=== PATIENT | female | born 1960 ===

== ENCOUNTER 2017-06-24 06:05 | Observation (INO) | payer MEDICARE, MEDICAID ==
[2017-06-24 06:20] VITALS: BMI 31.6
--- NOTE | 2017-06-24 06:52 | ED PDOC ---
Upper Extremity Pain/Injury Time Seen by Provider: 06/24/17 06:45 Chief Complaint (Nursing): Finger,Hand,&Wrist Chief Complaint (Provider): Hand Pain History Per: Patient History/Exam Limitations: no limitations Onset/Duration Of Symptoms: Persistent Current Symptoms Are (Timing): Still Present Additional Complaint(s): 57 year old right-hand dominant female presents to ED with complaints of left hand pain and has a past medical history of asthma. Notes intractable pain status post injury to the hand after falling a "long time ago". Notes pain has worsened with time. PCP: Alondra Past Medical History Reviewed: Historical Data, Nursing Documentation, Vital Signs Vital Signs: Last Vital Signs Temp 97.8 F 06/24/17 06:20 Pulse 74 06/24/17 06:20 Resp 18 06/24/17 06:20 BP 142/88 06/24/17 06:20 Pulse Ox 100 06/24/17 06:20 - Medical History PMH: Arthritis, Asthma, Fractures - Surgical History Surgical History: Tonsillectomy, Other surgeries: Lap band surgery, 2 right knee replacements, 1 left knee replacement - Family History Family History: States: Unknown Family Hx - Living Arrangements Living Arrangements: With Family - Social History Current smoker - smoking cessation education provided: No Ex-Smoker (has not smoked in the last 12 months): No - Home Medications Home Medications: Ambulatory Orders Medication Instructions Recorded Albuterol HFA [Ventolin HFA 90 2 puff INH PRN 06/24/17 mcg/actuation (8 g)] Ibuprofen [Motrin Tab] 1 tab PO Q6 PRN 06/24/17 Meloxicam [Mobic] 1 tab PO DAILY 06/24/17 Montelukast Sodium [Singulair] 1 tab PO BID 06/24/17 tiZANidine [Zanaflex] 1 tab PO BID 06/24/17 - Allergies Allergies/Adverse Reactions: Allergies Allergy/AdvReac Type Severity Reaction Status Date / Time No Known Allergies Allergy Verified 06/24/17 06:20 Review of Systems ROS Statement: Except As Marked, All Systems Reviewed And Found Negative Musculoskeletal: Positive for: Hand Pain (left hand pain) Physical Exam - Reviewed Nursing Documentation Reviewed: Yes Vital Signs Reviewed: Yes - Physical Exam Appears: Positive for: Non-toxic, No Acute Distress Skin: Positive for: Normal Color, Warm, Dry Cardiovascular/Chest: Negative for: Tachycardia Respiratory: Negative for: Respiratory Distress Extremity: Positive for: Tenderness (left hand tenderness). Negative for: Normal ROM (loss of ROM to left hand), Deformity Neurologic/Psych: Positive for: Alert, Oriented. Negative for: Motor/Sensory Deficits - Laboratory Results Result Diagrams: 06/24/17 07:00 06/24/17 07:00 - ECG ECG: Positive for: Interpreted By Me ECG Rhythm: Positive for: Sinus Rhythm, Nonspecific Changes Interpretation Of ECG: likely sinus rhythm w artifact at 67bpm O2 Sat by Pulse Oximetry: 100 (RA) Pulse Ox Interpretation: Normal Medical Decision Making Medical Decision Makin Initial plan: * EKG * Labs * PTT/PT * CXR admit hospitalist obs for med clearance and ortho/hand eval given degree of discomfort and inability to effectively use hand Scribe Attestation: Documented by Nupur Rizo acting as a scribe for Pelon Lovelace DO. Scribe Attestation: All medical record entries made by the Scribe were at my direction and personally dictated by me. I have reviewed the chart and agree that the record accurately reflects my personal performance of the history, physical exam, medical decision making, and the department course for this patient. I have also personally directed, reviewed, and agree with the discharge instructions and disposition. Disposition - Clinical Impression Clinical Impression: Hand injury - Patient ED Disposition Is Patient to be Admitted: Yes - Disposition Disposition Time: 06:58 Condition: STABLE Forms: [facility] ([place]) - Pt Status Changed To: Hospital Disposition Of: Observation - POA Present On Arrival: None
[2017-06-24 07:08] LABS: BASO % 0.3 % (0.0-2.0); EOS # 0.3 K/uL (0.0-0.7); EOS % 4.6 % (0.0-4.0); LYMPH # 2.4 K/uL (1.0-4.3); MEAN CELL VOLUME 90.7 fl (81.0-99.0); MEAN CORPUSCULAR HEMOGLOBIN 29.8 pg (27.0-31.0); MEAN CORPUSCULAR HGB CONC 32.9 g/dL (33.0-37.0); MEAN PLATELET VOLUME 9.8 fl (7.2-11.7); MONO # 0.5 K/uL (0.0-0.8); MONO % 7.3 % (0.0-10.0); NEUT # 3.6 K/uL (1.8-7.0); NEUT % 52.8 % (50.0-75.0); NRBC % 0.1 % (0.0-0.0); RBC 4.36 Mil/uL (3.80-5.20); RED CELL DISTRIBUTION WIDTH 13.2 % (11.5-14.5); WHITE BLOOD COUNT 6.7 K/uL (4.8-10.8)
[2017-06-24 07:21] LABS: INR 1.1 (0.9-1.2); PROTHROMBIN TIME 11.8 Seconds (9.8-13.1)
[2017-06-24 07:22] LABS: PARTIAL THROMBOPLASTIN TIME 31.8 Seconds (25.6-37.1)
[2017-06-24 07:24] LABS: ALB/GLOB RATIO 1.3 (1.0-2.1); ALBUMIN 4.5 g/dL (3.5-5.0); ALT/SGPT 34 U/L (9-52); AST/SGOT 27 U/L (14-36); BLOOD UREA NITROGEN 13 mg/dl (7-17); CALCIUM 9.7 mg/dL (8.4-10.2); GFR AFRICAN-AMERICAN > 60; GFR NON-AFRICAN AMERICAN > 60
--- NOTE | 2017-06-24 08:24 | CP.PCM.HP ---
<Davie Guerrero - Last Filed: 06/24/17 09:42> History of Present Illness - History of Present Illness History of Present Illness: 57 y/o F with a PMHx of bilateral Knee surgical repair presented to ER complaining of persistent L hand pain that began 3 years ago after falling and landing on her outstretch L hand. Pain has become severe since several weeks ago , constant, start at the level of wrist and radiates to fingers, aggravated by L hand movement and associated with paresthesia on lateral aspect of L hand involving first digit predominantly. Pt explains that around the time she fell 3 years ago, she was having bilateral diffuse arthralgias due to Chikungunya viral infection and L hand pain alleviated as viral infection subsidized. Pain was intermittent and did not seem to bother her much. Pt reports multiple falls due to bilateral knee weakness as result of surgical repairs, pt tends to land on outstretch hand. PMD: Dr Thaddeus Cantu in [place], [place]. Allergies: Penicillin, aspirin, carrots and celery. Medications: Mobic, Ibuprofen, Montelukast, Atrovent, Symbicort, Albuterol. PMHx: mild intermittent asthma PSHx: 6x, R Knee surgical repair on 2005 and 2017, L Knee surgical repair on 2016. Unspecified bariatric surgery. FHx: NC SHx: No smoking, ocasional EtOH, no rec drugs. At ER: - CBC, CMP and coagulation profile were unremarkable. - EKG and CXR were unremarkable. Present on Admission - Present on Admission Any Indicators Present on Admission: No Review of Systems - EENT Eyes: absent: Blurred Vision, Change in Vision Ears: absent: Ear Pain Nose/Mouth/Throat: absent: Nasal Congestion - Cardiovascular Cardiovascular: absent: Chest Pain, Chest Pain at Rest, Dyspnea - Respiratory Respiratory: absent: Cough, Dyspnea, Hemoptysis - Gastrointestinal Gastrointestinal: absent: Abdominal Pain, Bloating, Change in Bowel Habits - Genitourinary Genitourinary: absent: Difficulty Urinating Past Patient History - Past Medical History & Family History Past Medical History?: Yes - Past Social History Smoking Status: Never Smoked Alcohol: Occasional - PULMONARY Hx Asthma: Yes - MUSCULOSKELETAL/RHEUMATOLOGICAL Hx Arthritis: Yes Hx Fractures: Yes - PSYCHIATRIC Hx Substance Use: No - SURGICAL HISTORY Hx Tonsillectomy: Yes Meds Allergies/Adverse Reactions: Allergies Allergy/AdvReac Type Severity Reaction Status Date / Time aspirin Allergy RASH Verified 06/24/17 09:14 carrot Allergy RASH Verified 06/24/17 09:14 celery Allergy RASH Verified 06/24/17 09:14 Penicillins Allergy RASH Verified 06/24/17 09:14 Physical Exam - Constitutional Appears: Well, No Acute Distress - Head Exam Head Exam: ATRAUMATIC, NORMAL INSPECTION - Eye Exam Eye Exam: EOMI, Normal appearance, PERRL - ENT Exam ENT Exam: Mucous Membranes Moist - Neck Exam Neck exam: Positive for: Full Rom, Normal Inspection. Negative for: Meningismus - Respiratory Exam Respiratory Exam: Clear to Auscultation Bilateral, NORMAL BREATHING PATTERN - Cardiovascular Exam Cardiovascular Exam: REGULAR RHYTHM, +S1, +S2 - GI/Abdominal Exam GI & Abdominal Exam: Normal Bowel Sounds, Soft. absent: Rigid, Tenderness - Extremities Exam Additional comments: - L upper extremity: presence of swelling at the level wrist, decreased sensation on lateral aspect of L hand, decreased ROM on L first digit, inability to make a complete fist. Tenderness over lateral L hand. Strength 4/5 L hand. - R upper extremity unremarkable. - Presence of surgical scar on bilateral knees. Results - Vital Signs Recent Vital Signs: Last Vital Signs Temp 97.8 F 06/24/17 06:20 Pulse 74 06/24/17 06:20 Resp 18 06/24/17 06:20 BP 142/88 06/24/17 06:20 Pulse Ox 100 06/24/17 07:51 - Labs Result Diagrams: 06/24/17 07:00 06/24/17 07:00 Labs: Laboratory Results - last 24 hr 06/24/17 06/24/17 06/24/17 07:00 07:00 07:00 WBC 6.7 RBC 4.36 Hgb 13.0 Hct 39.5 MCV 90.7 MCH 29.8 MCHC 32.9 L RDW 13.2 Plt Count 190 MPV 9.8 Neut % (Auto) 52.8 Lymph % (Auto) 35.0 Fisher % (Auto) 7.3 Eos % (Auto) 4.6 H Baso % (Auto) 0.3 Neut # (Auto) 3.6 Lymph # (Auto) 2.4 Fisher # (Auto) 0.5 Eos # (Auto) 0.3 Baso # (Auto) 0.0 PT 11.8 INR 1.1 APTT 31.8 Sodium 143 Potassium 4.0 Chloride 102 Carbon Dioxide 30 Anion Gap 15 BUN 13 Creatinine 0.6 L Est GFR ( Amer) > 60 Est GFR (Non-Af Amer) > 60 Random Glucose 97 Calcium 9.7 Total Bilirubin 0.8 AST 27 ALT 34 Alkaline Phosphatase 79 Total Protein 8.1 Albumin 4.5 Globulin 3.6 Albumin/Globulin Ratio 1.3 Assessment & Plan - Assessment and Plan (Free Text) Assessment: 57 y/o F presented with persistent L hand pain. Plan: 1. Left hand pain - Consult to Orthopedics. - Meloxicam and Tizanidine for pain management. 2. Asthma, mild intermittent - C/w home medications: Albuterol and Montelukast. 3. DVT prophylaxis - SCDs for now. - Date & Time Date: 06/24/17 Time: 08:00 <Melody Tan - Last Filed: 06/24/17 09:48> Results - Vital Signs Recent Vital Signs: Last Vital Signs Temp 97.8 F 06/24/17 06:20 Pulse 74 06/24/17 06:20 Resp 18 06/24/17 06:20 BP 142/88 06/24/17 06:20 Pulse Ox 100 06/24/17 07:51 - Labs Result Diagrams: 06/24/17 07:00 06/24/17 07:00 Labs: Laboratory Results - last 24 hr 06/24/17 06/24/17 06/24/17 07:00 07:00 07:00 WBC 6.7 RBC 4.36 Hgb 13.0 Hct 39.5 MCV 90.7 MCH 29.8 MCHC 32.9 L RDW 13.2 Plt Count 190 MPV 9.8 Neut % (Auto) 52.8 Lymph % (Auto) 35.0 Fisher % (Auto) 7.3 Eos % (Auto) 4.6 H Baso % (Auto) 0.3 Neut # (Auto) 3.6 Lymph # (Auto) 2.4 Fisher # (Auto) 0.5 Eos # (Auto) 0.3 Baso # (Auto) 0.0 PT 11.8 INR 1.1 APTT 31.8 Sodium 143 Potassium 4.0 Chloride 102 Carbon Dioxide 30 Anion Gap 15 BUN 13 Creatinine 0.6 L Est GFR ( Amer) > 60 Est GFR (Non-Af Amer) > 60 Random Glucose 97 Calcium 9.7 Total Bilirubin 0.8 AST 27 ALT 34 Alkaline Phosphatase 79 Total Protein 8.1 Albumin 4.5 Globulin 3.6 Albumin/Globulin Ratio 1.3 Attending/Attestation - Attestation I have personally seen and examined this patient.: Yes I have fully participated in the care of the patient.: Yes I have reviewed all pertinent clinical information: Yes Notes (Text): Left Hand Pain , Hx of Fracture -Ortho/Hand Specialist consulted- Dr Matos - plan for surgery today - Keep Pt NPO - rpt EKG ( EKG done earlier multiple artifacts - looks normal, SR) -low cardiac risk for surgery _pain mgt
[2017-06-24] MEDS ORDERED: Albuterol HFA 90 mcg/actuation (8 g) INH PRN (08:47)
[2017-06-24] MEDS ORDERED: MELOXICAM PO SCH (09:00)
[2017-06-24] MEDS ORDERED: Lidocaine 1% Inj (20ml) ONE (09:52)
[2017-06-24] MEDS ORDERED: Bupivacaine 0.5% Inj(30mL) ONE (09:52)
[2017-06-24] MEDS ORDERED: Propofol 10 mg/ml Inj (20 ML) ONE (10:09)
[2017-06-24] MEDS ORDERED: Midazolam 2 MG/2 ML VIAL ONE (10:10)
[2017-06-24] MEDS ORDERED: Lidocaine 1% 5ml Abboject IV ONE (10:10)
[2017-06-24] MEDS ORDERED: Lidocaine 2% Jelly (5 ml) TOP ONE (10:10)
[2017-06-24] MEDS ORDERED: Lactated Ringer's 1,000 ML IV ONE (10:16)
[2017-06-24] MEDS ORDERED: Sodium Chloride 0.9% 10 ML IV ONE (10:55)
[2017-06-24] MEDS ORDERED: Ropivacaine 0.5% 30ML IV ONE (11:14)
--- NOTE | 2017-06-24 11:51 | RAD ---
HISTORY: Infiltrate COMPARISON: GoNo prior. FINDINGS: LUNGS: No active pulmonary disease. PLEURA: No significant pleural effusion identified, no pneumothorax apparent. CARDIOVASCULAR: No radiographic findings to suggest acute or significant cardiovascular disease. OSSEOUS STRUCTURES: No significant abnormalities. VISUALIZED UPPER ABDOMEN: Normal. OTHER FINDINGS: None. IMPRESSION: No active disease.
--- NOTE | 2017-06-24 12:11 | PCM.SURG1 ---
Surgeon's Initial Post Op Note - Surgeon's Notes Surgeon: Dr. Atwood Truck Service Technician: Dr. Jimenez PGY-2 Type of Anesthesia: General Mask Anesthesia Administered By: Dr. Santiago Pre-Operative Diagnosis: left thumb arthritis, trigger finger Operative Findings: see dictation Post-Operative Diagnosis: same Operation Performed: left thumb basal joint arthroplasty, trigger finger release , ligament reconstruction Specimen/Specimens Removed: bone Estimated Blood Loss: EBL {In ML}: 5 Blood Products Given: N/A Drains Used: No Drains Post-Op Condition: Good Date of Surgery/Procedure: 06/24/17 Time of Surgery/Procedure: 12:11
[2017-06-24] MEDS ORDERED: HYDROmorphone 0.5 mg/0.5 ml ISec IVP PRN (12:28)
[2017-06-24] MEDS ORDERED: Lactated Ringer's 1,000 ML IV SCH (12:30)
--- NOTE | 2017-06-24 12:32 | PCM.ANESB4 ---
Infraclavicular Block - Femoral Nerve Block Date of Procedure: 06/24/17 Anesthesiologist: Dr. Santiago Pre-Procedure Diagnosis: S/P left thumb basal joint arthroplasty Post-Procedure Diagnosis: S/P left thumb basal joint arthroplasty Procedure Performed: Brachial Plexus at the Infraclavicular area Left - Procedure Infraclavicular Block: The procedure was explained to the patient that it is for the post-operative pain management. Consent was obtained after a thorough discussion with the patient regarding the benefits and possible complications of local anesthetic block of the brachial plexus at the infraclavicular area. The patient was brought to the operating room and standard monitors were applied. Time-out was held with the circulating nurse to confirm the correct surgery and the appropriate block. After the surgery while still under general anesthesia, patient's head was gently rotated away from the operative left shoulder and the area medial to the coracoid process and inferior to the clavicle was carefully palpated. The ultrasound transducer was then applied to the skin in the transverse plane and the brachial plexus was visualized surrounding the axillary artery and deep to the pectoralis major and minor muscles. After thorough identification, this area was prepped with Chloraprep solution. At this point, a #21 gauge Stimuplex 4-inch needle was inserted cephalad to the ultrasound transducer and inferior to the clavicle in-plane towards the posterior aspect of the axillary artery. Needle advancement was performed carefully under ultrasound visualization. After repeated negative aspiration, 5cc of 0.5% ropivacaine was injected and this was followed with 25cc of 0.5 % ropivacaine. Under ultrasound guidance the local anesthetics were observed surrounding the cords of the brachial plexus. The needle was removed intact and sterile dressing was applied. The patient had stable vital signs, was conscious and in no apparent distress. The patient tolerated the infraclavicular block of the brachial plexus well with stable vital signs was awaken from anesthesia.
[2017-06-24] MEDS ORDERED: Oxycodone/Acetaminophen 5/325 mg Tab PO PRN (13:34)
[2017-06-24 15:05] VITALS: RESP 18
[2017-06-24 17:04] VITALS: PULSE 87
--- NOTE | 2017-06-24 17:06 | CARD ---
APPROVED REPORT EKG Measurement Heart [id number] MD P29 [id number] <Conclusion> Atrial flutter Abnormal ECG
[2017-06-24 17:45] VITALS: BP 128/76; TEMP 97.6; O2SAT 99
--- NOTE | 2017-07-02 09:06 | CON ---
DATE: 06/24/2017 REASON FOR CONSULTATION: Left thumb pain. HISTORY OF PRESENT ILLNESS: A 57-year-old female who presents to Emergency Room in [facility] with complaints of severe left thumb pain, chronic in nature. The patient underwent different treatment options including injection, antiinflammatory medications, and splinting. In the past with minimal improvement, complaining of difficulty using her hand, 9/10 in severity. PHYSICAL EXAMINATION: EXTREMITIES: Left thumb shows tenderness to palpation over CMC joint worse pain with radial and ulnar deviation of her wrist. Positive Anuja test. tender over A1 eliseo ASSESSMENT: Left thumb severe osteoarthritis. positive for trigger thumb. PLAN: I discussed the above findings with the patient. I recommended surgery; surgery will include left thumb arthroplasty. Risks of surgery were explained included, but not limited to bleeding, infection, tendon, nerve, vessel injury, instability, and chronic pain. The patient understood the above risk. She elected to undergo surgery and the patient was taken to the operating room for the above procedure. Carlo Atwood MD RACHEL
--- NOTE | 2017-07-03 09:00 | OP ---
PROCEDURE DATE: 06/24/2017 PREOPERATIVE DIAGNOSES: 1. 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 2. De Quervain's tenosynovitis, left wrist. 3. Stenosing tenosynovitis, left thumb. POSTOPERATIVE DIAGNOSES: 1. Osteoarthritis, left thumb basal joint complex. 2. De Quervain's tenosynovitis, left wrist. 3. Stenosing tenosynovitis, left thumb. PROCEDURE: 1. Left trapezium excisional arthroplasty. 2. Ligament reconstruction tendon interposition arthroplasty. 3. Decompression, local tenosynovectomy extensor tendon compartment. 4. Extensor pollicis brevis to abductor pollicis longus tendon transfer. 5. Left thumb flexor mechanism decompression. SURGEON: Carlo Atwood MD TYPE OF ANESTHESIA: Regional anesthesia and general anesthesia. ESTIMATED BLOOD LOSS: Minimal. DRAINS: None. COMPLICATIONS: None. SPECIMEN: Trapezium. DISPOSITION: Stable to recovery room. INDICATIONS: This is a 57-year-old female who presents to the Emergency Room at [facility] with complaint of left thumb pain that was oozing. The patient has a history of conservative therapy in the past, pain is severe and unable to hold objects in her hand, twisting with continue activities. The patient was taken to the Operating Room to undergo the above procedure. FINDINGS: Advanced osteoarthritis and basal joint complex of the thumb with subluxation, mostly comminuted of the trapezium, hypertrophic spurs of the trapezium . DESCRIPTION OF PROCEDURE: After successful administration of anesthesia, a well-padded tourniquet was applied to the patient's left upper extremity and the entire extremity was then prepped and draped in a standard surgical fashion. With sterile marking pen, the proposed incisions were outlined with a thumb arthroplasty and brachial released. A vertical incision was marked extending from the base of the distal metacarpal to the radial styloid for the thumb trigger. Finger decompression at 2 cm the MCP flexion crease. Thumb was elevated, thumb exsanguinated with an Esmarch bandage. A tourniquet was inflated to 250 mmHg. The Esmarch was removed. Attention was turned directly to the thumb and incision was made. Superficial veins were cauterized. Immediately, attention was directed to the and protecting the sensory branch of the radial nerve and carefully protected. The retinaculum was exposed and it was noted to be markedly fibrotic. The retinaculum will be incised over the first dorsal compartment leaving the to prevent collapse of the tendon. A separate compartment was encountered and this was incised in its incisor as well thoroughly decompressing the components of the posterior compartment. A tenosynovectomy was performed from the distal compartment to the base of the thumb. The superficial portions of the abductor pollicis longus was then protruded, but the ligament reconstruction tendon arthroplasty, which was divided proximally and left attached to the base of the first metacarpal distally with a a channel was created and direction towards the base of the first metacarpal. Sharp and blunt dissection of the entire trapezium was then removed as well as loose bodies emanating from the CMC joint as stated the trapezius muscle component and with partial resection of the trapezius was also performed and exposure and wound from the base of the second metacarpal and base of the first metacarpal thus creating a cylindrical joint space. Previously precluded tendon clips were then divided in half and direction and moved around the volar aspect of the first metacarpal and the round insertion of the flexor carpi radialis tendon sheath. This was secured back itself with multiple 4-0 Vicryl sutures. Rest of volar ligament was created. The flexor carpi radialis tendon was decompressed with passage 3-0 with tendon sheath. Second was passed over the base of the first metacarpal just resurfacing the base of the metacarpal similarly with a round insertion of the flexor carpi radialis tendon sheath. It was moved back down to itself and secured with maximum tension with 4-0 Vicryl sutures retaining ligaments was reconstructed. The retaining ligaments were constructed in to the base of the first metacarpal. The dorsal was then passed percutaneously from the base of the thumb, metacarpal previously occluded joint space. The ligament portions of the capsule and tendon joint entertained which was started to excise, those reconstructing tendon capsule abductor tendon is well preserved, abductor pollices brevis was then split to the base of the metacarpal 4-0 Vicryl sutures after reconstructing the vertical anatomical tendon. EPB tendon was then transferred in a side to side fashion with a insertion of APL tendon. Care was taken to the the wound was then irrigated and approximated with 4-0 Vicryl sutures. Attention was directed to the thumb volar side, the skin incision was made MCP area and superficial veins were cauterized. Both neurovascular bundles were identified and clearly detected. The A1 eliseo was then sharply identified and was noted to be markedly fibrotic. With a scalpel, the eliseo was completely incised and care was taken to preserve the critical oblique eliseo. The tendon was lifted from its bed and local tenosynovectomy was performed At this point, tourniquet was inflated, the wound was then irrigated. Hemostasis was achieved circulation and closed with 4-0 nylon interrupted sutures. Only wires were bend and cut and looked for protruding skin. A dressing just to protect surgical repair, thumb spica was placed. All wounds were thoroughly irrigated and hemostasis has been achieved. Skin was closed with 4-0 nylon sutures. The patient tolerated the procedure well and was returned to recovery room in excellent condition. Carlo Atwood MD
== END 2017-06-24 17:55 | disposition home or self-care (01) ==
LOC: H.ER 06:05 → H.ERHOLD 07:36 → OBSVTOIN 11:56 → INTOOBSV 11:56
PROVIDERS: ADMIT Internal Medicine; ATTEND Internal Medicine
DX: M18.9 Osteoarthritis of first carpometacarpal joint, unspecified (principal); J45.20 Mild intermittent asthma, uncomplicated; Z96.653 Presence of artificial knee joint, bilateral; Z98.84 Bariatric surgery status; M65.312 Trigger thumb, left thumb; W19.XXXS Unspecified fall, sequela; Z88.6 Allergy status to analgesic agent; Z88.0 Allergy status to penicillin; Z91.018 Allergy to other foods; M65.4 Radial styloid tenosynovitis [de Quervain]; M65.842 Other synovitis and tenosynovitis, left hand
CPT/HCPCS: 25310; 25447; 71045; 80053; 81025; 85025; 85610; 85730; 93005; 99284; C1713; G0378; J2250; J2704; J2765; J3010; J7030; J7120